=== PATIENT | female | born 1930 | race Caucasian/White ===

== ENCOUNTER 2017-04-01 22:35 | Emergency (ER) | payer MEDICARE, BC ==
[2017-04-02 00:04] VITALS: BP 183/78
[2017-04-02] MEDS ORDERED: predniSONE 20 MG Tab PO ONE (00:20)
[2017-04-02] MEDS ORDERED: Acetaminophen/HYDROcodone 325-5 MG Tab PO ONE (00:21)
--- NOTE | 2017-04-02 00:27 | EDM.PDOC ---
ED HPI GENERAL MEDICAL PROBLEM - General Chief Complaint: Upper Extremity Injury/Pain Stated Complaint: PAIN IN LT HAND/FEELS FAINT Time Seen by Provider: 04/02/17 00:10 Source of Information: Reports: Patient History Limitations: Reports: No Limitations - History of Present Illness INITIAL COMMENTS - FREE TEXT/NARRATIVE: History of present illness: [A 6 year old female is here with complaints of gout involving her left thumb. She was in the clinic today and started on indomethacin she took 1 pill and felt faint afterwards and so is concerned about taking indomethacin. She also takes allopurinol. She really had some lab work done in the clinic today.] Review of systems: As per history of present illness and below otherwise all systems reviewed and negative. Past medical history: As per history of present illness and as reviewed below otherwise noncontributory. Surgical history: As per history of present illness and as reviewed below otherwise noncontributory. Social history: No reported history of drug or alcohol abuse. Family history: As per history of present illness and as reviewed below otherwise noncontributory. Physical exam: HEENT: Atraumatic, normocephalic, Heart: S1S2, regular Abdomen: Soft, Extremities: Basically left thumb is swollen and tender to palpation and a little erythematous Neuro: Awake, alert, oriented. Exam nonfocal. Diagnostics: [] Therapeutics: [She is provided with prednisone 20 mg by mouth and [place] 5/325 one pill.] Impression: [Gout left thumb] Plan: [Prednisone 20 mg daily with food 7 days] Definitive disposition and diagnosis as appropriate pending reevaluation and review of above. Treatments BALLISTIC EXPERT: Reports: NSAIDS Left Hand Pain Score (Numeric/FACES): 8 - Related Data Allergies Allergy/AdvReac Type Severity Reaction Status Date / Time clindamycin Allergy Rash Verified 04/02/17 00:13 codeine Allergy Cannot Verified 04/02/17 00:13 Remember Sulfa (Sulfonamide Allergy Cannot Verified 04/02/17 00:13 Antibiotics) Remember Home Meds: Home Meds Ibuprofen 800 mg PO TID PRN 02/26/15 [History] Levothyroxine [Synthroid] 100 mcg PO DAILY 02/26/15 [History] Ruxolitinib Phosphate [Jakafi] 1 tab PO DAILY 02/26/15 [History] Warfarin [Coumadin] 2 mg PO DAILY 02/26/15 [History] Past Medical History HEENT History: Reports: Impaired Vision Other Cardiovascular History: 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 Other Gastrointestinal History: ulcer when took advil in past Has loose stools do to medications she is on Other Musculoskeletal History: left shoulder pain after doing stretches Called nurse line on the 5th and was RX motrin Other Hematologic History: myelofibrosis S/P polysythemia Other Oncologic History: Mylofibrosis Other Dermatologic History: Hx Puritic rash - Infectious Disease History Infectious Disease History: Reports: Chicken Pox, Measles Social & Family History - Family History Family Medical History: Noncontributory - Tobacco Use Smoking Status *Q: Never Smoker Used Tobacco, but Quit: No Second Hand Smoke Exposure: No - Caffeine Use Caffeine Use: Reports: Coffee - Alcohol Use Days Per Week of Alcohol Use: 7 Number of Drinks Per Day: 2 Total Drinks Per Week: 14 - Recreational Drug Use Recreational Drug Use: No Review of Systems - Review of Systems Review Of Systems: ROS reveals no pertinent complaints other than HPI. ED EXAM, GENERAL - Physical Exam Exam: See Below Course - Vital Signs Last Recorded V/S: Last Vital Signs Temp 35.4 C 04/02/17 00:07 Pulse 69 04/02/17 00:07 Resp 18 04/02/17 00:07 BP 183/78 H 04/02/17 00:07 Pulse Ox 98 04/02/17 00:07 - Orders/Labs/Meds Meds: Medications Discontinued Medications Generic Name Dose Route Start Last Admin Trade Name Teetee PRN Reason Stop Dose Admin Hydrocodone Bitart/Acetaminophen 1 tab 04/02/17 00:21 [place] 325-5 Mg PO 04/02/17 00:22 ONETIME ONE Prednisone 20 mg 04/02/17 00:20 Prednisone PO 04/02/17 00:21 ONETIME ONE Departure - Departure Time of Disposition: 00:26 Disposition: Home, Self-Care 01 Condition: Good Clinical Impression: Gout attack Qualifiers: Gout site: hand Gout etiology: unspecified cause Laterality: left Qualified Code(s): M10.9 - Gout, unspecified - Discharge Information Forms: ED Department Discharge Additional Instructions: If using the prednisone is still not working for usual need to follow-up with your primary care doctor for further options of the treatment of your gout.
== END 2017-04-02 00:58 | disposition home or self-care (01) ==
LOC: JP.ED 22:35
DX: M10.9 Gout, unspecified (principal); H54.7 Unspecified visual loss; Z88.2 Allergy status to sulfonamides; Z88.5 Allergy status to narcotic agent; Z88.8 Allergy status to other drugs, medicaments and biological substances; Z79.01 Long term (current) use of anticoagulants; Z79.899 Other long term (current) drug therapy
CPT/HCPCS: 99283; A9270